=== PATIENT | female | born 1980 | race Caucasian/White ===

== ENCOUNTER 2018-05-05 12:08 | Emergency (ER) | payer SELFPAY ==
[~2018-05-05] VITALS: Ht 162.6 cm; Wt 113.4 kg
[2018-05-05 12:30] VITALS: BP 100/69
[2018-05-05] MEDS ORDERED: NACL 0.9% 500 ML IV ONE (12:46)
--- NOTE | 2018-05-05 12:47 | NUR ---
PT BIB DUE TO RUQ PAIN X 1 WEEK INTERMITTENT, CONSTANT THE LAST 2 DAYS. N/V X 2 DAYS . NO FEVERS OR CHILLS. NO DIARRHEA. PATIENT STATES TENDERNESS IN RUQ. ABD SOFT AND ROUND. MED HX: APPENDECTOMY, GULL BLADDER REMOVAL, TUBES TIED. ALLERGIES : TORADOL, IBUPROFEN, IODINE
[2018-05-05] MEDS ORDERED: fentaNYL 0.05 MG/ML VIAL IVP ONE (12:50)
[2018-05-05] MEDS ORDERED: ONDANSETRON 4 MG/2 ML VIAL IVP ONE (12:50)
--- NOTE | 2018-05-05 13:00 | NUR ---
ERMD AT BEDSIDE
--- NOTE | 2018-05-05 13:18 | NUR ---
Note undone in EDM - 05/05/18 at 1319 by FELIPA PT BIB DUE TO RUQ PAIN X 1 WEEK INTERMITTENT, CONSTANT THE LAST 2 DAYS. N/V X 2 DAYS . NO FEVERS OR CHILLS. NO DIARRHEA. PATIENT STATES TENDERNESS IN RUQ. ABD SOFT. MED HX: APPENDECTOMY, GULL BLADDER REMOVAL, TUBES TIED. ALLERGIES : TORADOL, IBUPROFEN, IODINE
--- NOTE | 2018-05-05 13:18 | NUR ---
US AT BEDSIDE.
[2018-05-05] MEDS ORDERED: MORPHINE SULFATE 4 MG/ML SYR IVP ONE (13:40)
[2018-05-05] MEDS ORDERED: ONDANSETRON 4 MG/2 ML VIAL IM ONE (13:50)
[2018-05-05] MEDS ORDERED: MORPHINE SULFATE 4 MG/ML SYR IM ONE (13:50)
[2018-05-05 15:11] VITALS: BP 110/72
[2018-05-05 15:21] LABS: ANION GAP 11.1 (8-16); CREATININE 0.8 mg/dL (0.6-1.3); POTASSIUM 4.1 mmol/L (3.5-5.1)
[2018-05-05 15:29] LABS: ALBUMIN 3.6 g/dL (3.4-5.0); TOTAL BILIRUBIN 0.3 mg/dL (0.0-1.0)
== END 2018-05-05 15:11 | disposition home or self-care (01) ==
LOC: MED 12:08
DX: R10.11 Right upper quadrant pain (principal); R11.10 Vomiting, unspecified; Z90.49 Acquired absence of other specified parts of digestive tract; Z88.8 Allergy status to other drugs, medicaments and biological substances; Z90.710 Acquired absence of both cervix and uterus
CPT/HCPCS: 36415; 76705; 80053; 81002; 81025; 83690; 96372; 99284; J2270; Q0092; J2405